=== PATIENT | male | born 1985 | race Caucasian/White ===

== ENCOUNTER 2023-06-03 16:37 | Outpatient (CLI) | payer OTHER, SELFPAY ==
[2023-06-03 16:55] LABS: Appearance Urine Clear (Clear); Basophils Absolute Auto 0.06 K/mm3 (0.00-0.10); Basophils Percent Auto 0.8 % (0.0-1.0); Bilirubin Urine Negative (Negative); Blood Urine Trace-Intact (Negative); Color Urine Light Yellow (Yellow); Eosinophils Absolute Auto 0.05 K/mm3 (0.02-0.50); Eosinophils Percent Auto 0.7 % (1.0-6.0); Glucose Urine UA Negative (Negative); Hemoglobin 14.3 g/dL (14.0-18.0); Immature Granulocyte Absolute 0.02 K/mm3 (0.00-0.00); Immature Granulocyte Percent A 0.3 % (0.0-0.0); Ketones Urine Negative (Negative); Leukocyte Esterase Ur Negative (Negative); Lymphocytes Percent Auto 23.6 % (18.0-42.0); Mean Corpuscular Hemoglobin 34.7 pg (27.0-31.0); Mean Corpuscular Volume 101.9 fL (78.0-102.0); Mean Platelet Volume 10.1 fl (8.7-11.0); Monocytes Absolute Auto 0.98 K/mm3 (0.10-0.90); Monocytes Percent Auto 12.8 % (2.0-11.0); Neutrophils Absolute Auto 4.7 K/mm3 (1.7-7.2); Neutrophils Percent Auto 61.8 % (50.0-70.0); Nitrate Urine Negative (Negative); Platelet Count Result 259 K/mm3 (150-420); Protein Urine Negative (Negative); Red Blood Count 4.12 M/mm3 (4.70-6.10); Red Cell Distribution Width 12.1 % (11.6-14.4); Specific Grav Ur 1.015 (1.010-1.020); White Blood Count 7.6 K/mm3 (4.8-10.8)
[2023-06-03 17:02] LABS: Add Urine Microscopic? YES; Bacteria Urine None seen /hpf; RBC Urine 0-2 /hpf (0-2); Squamous Epithelial Cell Urine Rare /hpf (Few); WBC Urine None seen /hpf (0-3)
[2023-06-03 17:27] LABS: Alanine Aminotransferase 106 U/L (16-63); Albumin Level 4.1 g/dL (3.4-5.0); Alkaline Phosphatase 63 U/L (46-116); Anion Gap 11 mmol/L (8-16); Aspartate Amino Transferase 49 U/L (15-37); Bilirubin,Total 0.6 mg/dL (0.00-1.00); Blood Urea Nitrogen 18 mg/dL (7-18); Calcium 9.3 mg/dL (8.5-10.1); Carbon Dioxide 27 mmol/L (21-32); Chloride 100 mmol/L (98-108); Cholesterol 224 mg/dL (0-200); Creatine Kinase 89 U/L (39-308); Estimated Glomerular Filt Rate > 60; Glucose 96 mg/dL (70-99); HDL Direct 81 mg/dL (40-60); LDL Cholesterol Calculated 115 mg/dL (<130); Osmolality Calculated 287 mOsm/kg (285-295); Potassium 3.9 mmol/L (3.5-5.1); Sodium 138 mmol/L (136-145); Total Protein 7.5 g/dL (6.4-8.2); Triglycerides 142 mg/dL (0-150)
== END 2023-06-03 16:38 | disposition home or self-care (01) ==
LOC: CHSLAB 16:43
PROVIDERS: PCP Internal Medicine; Visit Provider Internal Medicine
DX: E78.2 Mixed hyperlipidemia (principal); R74.8 Abnormal levels of other serum enzymes; F34.1 Dysthymic disorder
CPT/HCPCS: 36415; 80053; 80061; 81001; 82550; 85025

== ENCOUNTER 2024-05-03 16:16 | Emergency (ER) | payer OTHER, SELFPAY ==
[2024-05-03 16:27] VITALS: BP 156/68; PULSE 121; RESP 20; TEMP 36.6; O2SAT 100
--- NOTE | 2024-05-03 17:03 | ED.URI ---
HPI - URI/Sore Throat General Chief Complaint: Upper Respiratory Infection Stated Complaint: throat Time Seen by Provider: 05/03/24 16:41 Source: patient, RN notes reviewed and old records reviewed Mode of arrival: ambulatory Limitations: no limitations History of Present Illness HPI Narrative: 39-year-old male presents to [facility] with complaints of sore throat since Wednesday evening with low grade fevers noted. Patient reports that his was diagnosed with strep throat today. Patient reports no cough, no nasal congestion or drainage, states no body aches, headaches or any nausea or vomiting. Patient reports that he has been taking Ibuprofen for his symptoms. MD elicited complaint: fever and sore throat Onset (ago): day(s) (2) Severity: moderate Pain scale (0-10): 5 Able to tolerate fluids by mouth: Yes Exacerbating factors: swallowing Treatments prior to arrival: ibuprofen Related Data Allergies Allergy/AdvReac Type Severity Reaction Status Date / Time No Known Allergies Allergy Verified 05/03/24 17:03 Review of Systems Review of Systems: CONSTITUTIONAL: Reports some malaise, chills, sweats, or fever. EYES: Denies visual changes, redness, or discharge. ENT: Reports no rhinorrhea, congestion, sinus pain, otalgia does report sore throat. CARDIOVASCULAR: Denies chest pain, palpitations, or edema. RESPIRATORY: Reports no cough.? Denies dyspnea. GASTROINTESTINAL: Denies abdominal pain, nausea, vomiting, diarrhea SKIN: Denies rash or itching. MUSCULOSKELETAL: Denies myalgia. NEUROLOGIC: Denies headache. All systems reviewed & are unremarkable except as noted in HPI and below PMFSH Past Medical History Medical History (Updated 05/04/24 @ 00:01 by Melissa Dailey) Hyperlipidemia Social History Social History (Updated 05/03/24 @ 17:09 by Sarika Elder NP) Smoking status: Former smoker Tobacco type: cigarettes Additional smoking assessment comments: 1 year ago quit completely former some day smoke Alcohol intake: current Substance use type: does not use Living arrangements: with family Gender identity (if verbalized by the patient): Male Comments At time of signature, agree with nursing past medical, surgical, social and family history. There is no relevant family history pertinent to the presenting complaint Exam Narrative: GENERAL: Well-appearing, well-nourished, and in no acute distress. HEAD: Normocephalic EYES: PERRLA, conjunctivae clear ENT: Nares clear, turbinates edematous and erythematous, clear discharge. Mucous membranes moist. TM pearly thomas with dull light reflex bilaterally; no tragal tenderness. Oropharynx erythematous without lesions. Tonsils red enlarged and without exudate, no drooling, no hoarseness, no trismus, uvula midline, painful swallowing and known exposure to strep. NECK: Supple. lymphadenopathy CHEST: Clear to auscultation, breath sounds equal. No wheezing, rhonchi, rales, or stridor. No respiratory distress, speaks in full sentences.SAO2 100% on room air HEART: Regular rate and rhythm. No murmur heard. SKIN: Warm, dry, no rash. NEURO: Alert and oriented x3. PSYCH: Normal mood and affect Course Course Emergency Course: Patient is aware of diagnosis, understands and agrees to treatment plan.? Anticipatory guidance given.? Patient agrees to follow-up as directed and is aware of reasons to seek care at the emergency department. Portions of this record may have been created with voice recognition software Level of Care: Express Care Visit Vital Signs Vital signs: Vital Signs Temperature 36.6 C 05/03/24 16:27 Pulse Rate 121 H 05/03/24 16:27 Respiratory Rate 20 05/03/24 16:27 Blood Pressure 156/68 H 05/03/24 16:27 Pulse Oximetry 100 05/03/24 16:27 Oxygen Delivery Room Air 05/03/24 16:27 Temperature 36.6 C 05/03/24 16:27 Pulse Rate 121 H 05/03/24 16:27 Respiratory Rate 20 05/03/24 16:27
== END 2024-05-03 17:20 | disposition home or self-care (01) ==
PROVIDERS: Emergency Provider Registered Nurse; PCP Internal Medicine
DX: J02.0 Streptococcal pharyngitis (principal); Z87.891 Personal history of nicotine dependence; E78.5 Hyperlipidemia, unspecified
CPT/HCPCS: 87880; 99213; G0463

== ENCOUNTER 2024-07-03 06:20 | Day surgery (SDC) | payer OTHER, SELFPAY ==
[2024-06-26 11:25] VITALS: BMI 25.5
[2024-06-28 14:25] VITALS: BMI 25.2
--- NOTE | 2024-07-03 06:48 | P.PNAN_ITS ---
Anes - Initial Pre Proc Eval Procedure: Operation Date: 07/03/24 08:00 Proposed Procedures p Esophagogastroduodenoscopy - Henrry Horton DO s Diagnostic Colonoscopy - Henrry Horton DO Date/Time: 07/03/24 06:48 Surgeon: Henrry Horton DO Pre Op Diagnosis: Melena and Anemia Patient Data Age: 39 Gender: M Height: 1.78 m Weight: 80 kg Allergies Allergy/AdvReac Type Severity Reaction Status Date / Time No Known Allergies Allergy Verified 07/03/24 06:50 Home Medications Medication Instructions Recorded Confirmed Type atorvastatin 20 mg tablet 20 mg PO DAILY 06/28/24 07/03/24 History buspirone 10 mg tablet 10 mg PO BID 06/28/24 07/03/24 History ferrous sulfate 325 mg (65 mg 325 mg PO TID 06/28/24 07/03/24 History iron) tablet multivitamin with minerals-folic 1 tablet PO DAILY 06/28/24 07/03/24 History acid 0.4 mg tablet venlafaxine 37.5 mg 37.5 mg PO DAILY 06/28/24 07/03/24 History capsule,extended release 24 hr Patient hx anesthesia problems: none Family hx anesthesia problems: none Results Review: All pre-operative results and documents have been reviewed as part of the pre- operative evaluation. [facility] Past Medical History Medical History (Updated 07/03/24 @ 07:34 by Henrry Horton DO) Hyperlipidemia Social History Social History (Updated 05/03/24 @ 17:09 by Sarika Elder NP) Smoking packs per day: 0.5 Smoking cigarettes per day: 10.0 Years smoked: 10 Smoking pack-years: 5.00 Smoking status: Current some day smoker Tobacco type: cigarettes Additional smoking assessment comments: 1 year ago quit completely former some day smoke Alcohol intake: current Drinks per week: 21 Substance use: never Substance use type: does not use Living arrangements: alone Gender identity (if verbalized by the patient): Male Anes - Eval Final PreProcedure Day of Procedure 07/03/24 06:48 Patient weight: normal Heart: regular rate and rhythm Lungs: clear to auscultation and normal air movement Airway: Mallampati scale class II Neurological: alert and oriented Last oral intake: >/= 8 hours ASA classification: II Emergent: no Anesthetic plan: proceed Anesthesia type and monitoring: general GIVS and standard monitoring Results Review: All pre-operative results and documents have been reviewed as part of the pre- operative evaluation. Informed Consent: The patient's anesthetic plan and its attendant risks and benefits were discussed with the patient/family/POA. Questions were solicited and answers provided to the satisfaction of the patient/family/POA.
[2024-07-03 07:08] VITALS: BP 138/96; PULSE 90; RESP 20; TEMP 37.3; O2SAT 100; BMI 23.9
[2024-07-03] MEDS: LACTATED RINGERS 1,000 ML 150 ML IV CONT (07:23)
--- NOTE | 2024-07-03 07:30 | PM.IMHP ---
H&P: HPI History of Present Illness Date/Time: 07/03/24 07:30 Chief Complaint: Rectal bleeding, GERD, fam hx colon cancer Narrative: 39 yo man presents for EGD and colonoscopy. He has been having frequent rectal bleeding and has prolapsing internal hemorrhoids. He also has a fam hx of colon cancer in his father who was diagnosed at 47. He gets acid reflux and heartburn as well. He denies frequent ibuprofen use, but does drink alcohol and smokes. Review of Systems Review of Systems: All systems reviewed & are unremarkable except as noted in HPI and below Constitutional: Constitutional: Denies chills, Denies fever(s), Denies headache(s) and Denies weight loss Eyes: Eyes: Denies change in vision ENT: Denies dizziness, Denies headache(s), Denies neck mass and Denies throat swelling Cardiovascular: Cardiovascular: Denies chest pain, Denies lightheadedness and Denies dyspnea Respiratory: Respiratory: Denies cough, Denies dyspnea and Denies wheezing Gastrointestinal: Gastrointestinal: Denies abdominal pain, Denies change in bowel habits, Denies nausea and Denies vomiting Genitourinary: Genitourinary: Denies hematuria and Denies dysuria Musculoskeletal: Musculoskeletal: Reports as per HPI Integumentary/Breasts: Skin/Breast: Reports as per HPI Neurologic: Denies dizziness and Denies headache(s) Allergic/Immunologic: Allergic/Immunologic: Denies throat swelling and Denies wheezing [facility] Past Medical History Medical History (Updated 07/03/24 @ 07:34 by Henrry Horton DO) Hyperlipidemia Social History Social History (Updated 05/03/24 @ 17:09 by Sarika Elder NP) Smoking packs per day: 0.5 Smoking cigarettes per day: 10.0 Years smoked: 10 Smoking pack-years: 5.00 Smoking status: Current some day smoker Tobacco type: cigarettes Additional smoking assessment comments: 1 year ago quit completely former some day smoke Alcohol intake: current Drinks per week: 21 Substance use: never Substance use type: does not use Living arrangements: alone Gender identity (if verbalized by the patient): Male Meds Home Medications and Allergies Home Medications Medication Instructions Recorded Confirmed Type atorvastatin 20 mg tablet 20 mg PO DAILY 06/28/24 07/03/24 History buspirone 10 mg tablet 10 mg PO BID 06/28/24 07/03/24 History ferrous sulfate 325 mg (65 mg 325 mg PO TID 06/28/24 07/03/24 History iron) tablet multivitamin with minerals-folic 1 tablet PO DAILY 06/28/24 07/03/24 History acid 0.4 mg tablet venlafaxine 37.5 mg 37.5 mg PO DAILY 06/28/24 07/03/24 History capsule,extended release 24 hr Allergies Allergy/AdvReac Type Severity Reaction Status Date / Time No Known Allergies Allergy Verified 07/03/24 06:50 Vital Signs Vital Signs - 24 hr 07/03/24 07:08 Temperature 99.2 F Pulse Rate 90 Respiratory Rate 20 Blood Pressure 138/96 H Pulse Oximetry 100 Oxygen Delivery Room Air Exam Const: General: no acute distress and alert Orientation/consciousness: patient oriented x3 HENMT: Head: normocephalic and atraumatic Ears: hearing grossly normal bilaterally Face/Nose/Sinus: Normal nares present Mouth: Yes Normal oral and palatal mucosa present Eyes: Periorbital: periorbital findings normal Sclera: sclerae normal EOM: EOMs intact bilaterally Neck: Neck: normal visual inspection, no lymphadenopathy and trachea midline Chest: Chest palpation & inspection: normal inspection of the chest Resp: Effort & Inspection: normal respiratory effort Auscultation: clear to auscultation bilaterally Cardio: Jugular venous distension: no JVD Rate: regular rate Rhythm: regular rhythm Heart sounds: S1 normal heart sound present and S2 normal heart sound present Peripheral pulses: Peripheral pulses 2+ throughout GI: Inspection: normal to inspection GI Palp: Yes Soft to palpation, No Tenderness to palpation present (GI), No Guarding due to palpation prese
[2024-07-03 08:41] VITALS: BP 105/64; PULSE 82; RESP 20; O2SAT 94
[2024-07-03 08:51] VITALS: PULSE 75; RESP 20; O2SAT 100
[2024-07-03 09:01] VITALS: BP 127/94; PULSE 79; RESP 18; O2SAT 100
--- NOTE | 2024-07-03 11:28 | WPDANESPN ---
Anes - Prog Note Post-Op Date/Time: 07/03/24 11:28 Cardiovascular status: normal Respiratory status: normal Airway patency: baseline Mental status: baseline Post-Op hydration status: normal Vital Signs: Last Vital Signs Temp 37.3 C 07/03/24 07:08 Pulse 79 07/03/24 09:01 Resp 18 07/03/24 09:01 BP 127/94 H 07/03/24 09:01 Pulse Ox 100 07/03/24 09:01 O2 Del Method Room Air 07/03/24 09:01 Pain Score (VAS): 0 I/O: Intake & Output 07/02/24 07/03/24 07/03/24 23:59 07:59 15:59 Intake Total 900 Balance 900 Post-procedural complaints: none Patient Feedback: Patient satisfied with anesthetic care. Other Findings: Patient vital signs back to baseline. Patient denies nausea and vomiting. Patient's pain under control. Patient OK for discharge.
== END 2024-07-03 09:42 | disposition home or self-care (01) ==
PROVIDERS: PCP Internal Medicine; Visit Provider Surgery
PROC: 0DJ08ZZ Inspection of Upper Intestinal Tract, Via Natural or Artificial Opening Endoscopic (ICD-10-PCS; CPT 43235; principal; 2024-07-03 08:00)
PROC: 0DJD8ZZ Inspection of Lower Intestinal Tract, Via Natural or Artificial Opening Endoscopic (ICD-10-PCS; CPT 45378; 2024-07-03 08:00)
DX: Z80.0 Family history of malignant neoplasm of digestive organs (principal); K21.9 Gastro-esophageal reflux disease without esophagitis; D12.5 Benign neoplasm of sigmoid colon; D12.8 Benign neoplasm of rectum; K57.30 Diverticulosis of large intestine without perforation or abscess without bleeding; K64.8 Other hemorrhoids; K20.80 Other esophagitis without bleeding
CPT/HCPCS: 45385; 43239

== ENCOUNTER 2024-07-03 07:00 | Outpatient (NON) | payer OTHER, SELFPAY | END 2024-07-03 07:01 | disposition home or self-care (01) | LOC: ANHLAB 07-04 07:33 | PROVIDERS: PCP Internal Medicine; Visit Provider Surgery | DX: K21.00 Gastro-esophageal reflux disease with esophagitis, without bleeding (principal); Z80.0 Family history of malignant neoplasm of digestive organs | CPT/HCPCS: 88305 ==